=== PATIENT | female | born 1970 | race Caucasian/White ===

== ENCOUNTER → 2023-06-09 07:47 | Outpatient (REF) | payer BC, SELFPAY | LOC: WDC 07:47 | PROVIDERS: ATTENDING PHYSICIAN Obstetrics & Gynecology; FAMILY PHYSICIAN Physician Assistant Medical | DX: Z12.31 Encounter for screening mammogram for malignant neoplasm of breast (principal) | CPT/HCPCS: 77063; 77067 ==

== ENCOUNTER 2024-03-02 06:42 | Day surgery (SDC) | payer BC, SELFPAY ==
[2024-03-02 08:44] VITALS: BP 151/91
[2024-03-02 08:49] VITALS: BMI 41.6
[2024-03-02 08:55] VITALS: BMI 41.6
[2024-03-02 10:25] VITALS: BP 128/82
[2024-03-02 10:30] VITALS: BP 135/86
[2024-03-02 10:45] VITALS: BP 151/80
== END 2024-03-02 11:00 | disposition home or self-care (01) ==
LOC: GI 06:42
PROVIDERS: ATTENDING PHYSICIAN Student in an Organized Health Care Education/Training Program
DX: Z12.11 Encounter for screening for malignant neoplasm of colon (principal); K57.30 Diverticulosis of large intestine without perforation or abscess without bleeding; K64.0 First degree hemorrhoids; D12.3 Benign neoplasm of transverse colon; D12.4 Benign neoplasm of descending colon; K63.5 Polyp of colon; Z80.0 Family history of malignant neoplasm of digestive organs
CPT/HCPCS: 45385; 88305

== ENCOUNTER → 2024-05-27 07:20 | Outpatient (REF) | payer BC, SELFPAY ==
--- NOTE | 2024-05-27 08:50 | CARDSERVDEF ---
Echocardiogram with Definity completed after protocol screening completed. Allergies verified.
Patent IV site: 22 g agiocath inserted in LFA without incident, 1st attempt.
IV site flushed with 0.9% NaCl pre and post administration.
Diluted bolus method utilized to enhance visualization of ventricular nuñez.
Total volume given: 5 mL
Patient tolerated all procedures well without complications.
IV d/c'd and bandage applied after pressure held.
Pt discharged to home in good condition.
== END ==
LOC: RCS 07:20
PROVIDERS: ATTENDING PHYSICIAN Physician Assistant Medical
DX: R00.0 Tachycardia, unspecified (principal); R55 Syncope and collapse; R94.31 Abnormal electrocardiogram [ECG] [EKG]
CPT/HCPCS: 93017; 93225; 93226; 93350

== ENCOUNTER → 2024-06-09 07:50 | Outpatient (REF) | payer BC, SELFPAY | LOC: WDC 07:50 | PROVIDERS: ATTENDING PHYSICIAN Physician Assistant Medical | DX: Z12.31 Encounter for screening mammogram for malignant neoplasm of breast (principal) | CPT/HCPCS: 77063; 77067 ==

== ENCOUNTER → 2024-08-30 12:55 | Outpatient (REF) | payer BC, SELFPAY | LOC: RCS 12:55 | PROVIDERS: ATTENDING PHYSICIAN Internal Medicine Cardiovascular Disease; FAMILY PHYSICIAN Physician Assistant Medical | DX: R42 Dizziness and giddiness (principal); I10 Essential (primary) hypertension | CPT/HCPCS: 93306 ==

== ENCOUNTER 2024-11-25 10:11 | Emergency (ER) | payer BC, SELFPAY ==
[2024-11-25 10:12] VITALS: BP 171/96
--- NOTE | 2024-11-25 11:05 | ED.GENMED ---
History of Present Illness
General
Chief Complaint: Blood Pressure Problem
Source: patient
Exam Limitations: none
Time Seen by Provider: 11/25/24 10:44
History of Present Illness
History of Present Illness:
54yoF with a history of hypertension and rosacea presenting for evaluation of jitteriness. Patient started to experience kaleidoscope vision last night and was seeing 'silver flickers' in her vision. She has experienced this several times in the
past and this usually resolves after taking headache medication. She developed a gradual headache afterwards and took 2 [facility] migraine pills and went to bed. She woke up in the middle of the night feeling anxious with her heart racing. She had an
uneasiness in her stomach and felt like she could feel the 'air moving throughout her intestines.' She was having difficulty sleeping due to her symptoms. She again had kaleidoscope vision this morning which is unusual. She checked her blood
pressure at home which was 142/80. She called her PCP and was told to go to the ED for evaluation. Vision has improved currently but she states she does not feel right. No current headache but she feels like her 'head is fuzzy.' No chest pain or
shortness of breath. Her only current medications are amlodipine and doxycycline.
Patient has had similar symptoms at nighttime recently. Her PCP thought her symptoms may be related to anxiety or perimenopause.
Phy Exam
General Physical Exam
General Presentation: well appearing and no apparent distress
General Skin: warm and dry
General Habitus: normal
General Mental: alert
ENT Exam
ENT Exam: normocephalic
Eye Exam
Eye Exam: PERRL, EOMI, conjunctiva normal and visual huffman normal
Cardiovascular Exam
Cardiovascular Exam: regular rate/rhythm, no edema and no murmur
Pulmonary Exam
Pulmonary Exam: lungs clear, no respiratory distress, no rales, no crackles, no rhonchi and no wheezing
Neurological Exam
Neurological Exam: alert
[place] Coma Scale
Eye Opening: Spontaneous
Verbal Response: Oriented
Motor Response: Obeys Commands
GCS Total Score: 15
Skin Exam
Skin Exam: normal color and warm/dry
Psychiatric Exam
Psychiatric Exam: anxious
Course
Orders/Labs/Results
Orders:
Orders
11/25/24 11:03
Cardiac Monitoring- Treatment ONCE
Visual Acuity- Treatment ONCE
11/25/24 11:04
Electrocardiogram (*1) Urgent
Reason for Study: Palpitations
CT Head W/o Iv Contrast Urgent
Comment:
Reason For Exam: headache, visual changes
EKG- Treatment ONCE
11/25/24 11:18
Complete Blood Count/With Diff Urgent
Comprehensive Metabolic Panel Urgent
Magnesium Urgent
TSH Reflex To Free T4 Urgent
Troponin I Urgent
11/25/24 13:02
EKG- Treatment ONCE
11/25/24 14:15
Electrocardiogram (*1) Urgent
Reason for Study: Palpitations
11/25/24 15:13
Troponin I Urgent
11/25/24 11:18
11/25/24 11:18
Vital Signs
Initial and Last Documented VS:
Initial Vital Signs
Temp Pulse Resp BP Pulse Ox
98.6 F 79 18 171/96 100
11/25/24 10:12 11/25/24 10:12 11/25/24 10:12 11/25/24 10:12 11/25/24 10:12
Last Documented Vital Signs
Temp Pulse Resp BP Pulse Ox
98.1 F 60 16 126/82 96
11/25/24 16:14 11/25/24 16:14 11/25/24 16:14 11/25/24 16:14 11/25/24 16:14
MDM/Problems Addressed
Differential Diagnosis Includes:
54yoF here with jitteriness. Had kaleidoscope vision last night and this morning which has improved. Also had a headache which is better. States she does not feel right. No CP/SOB. BP 171/96 in triage. Remainder of vitals normal. She is well
appearing in no distress. Pupillary exam is normal and visual huffman/EOMs intact. Differential diagnosis includes but is not limited to: anxiety, complex migraine, thyroid dysfunction, less likely ACS, doubt CVA
Initial ED plan: Check cardiac labs, TSH, EKG, and CT head.
*Pulse Oximetry
SaO2: 100
Oxygen Mode of Delivery: Room air
Patient hypoxic: no (100%)
*EKG
Interpreted by ED Provider?: Yes
EKG Intrepretation Date: 11/25/24
Heart Rate: 62
Rate: normal
Rhythm: sinus
[place]: normal axis
Interval: normal interval
QRS Pattern: normal QRS
Ischemia: non-specific ST changes
*Critical Care Note
Total Time (30-74mins, 75-104mins- exclusive of procedures): Not Applicable
Update Note
Update Note:
Labs unremarkable including normal glucose, electrolytes, TSH. EKG shows NSR with nonspecific ST changes which appear new from prior EKG in 2002. Troponin WNL. CT head negative. On reassessment, she continues to deny chest pain. Her only current
symptom is fatigue and a mild headache. Repeat EKG/troponin performed at around 4 hours is unchanged. BP improved 126/82 without intervention. Patient stable for discharge. She was advised to f/u with her PCP and cardiology. She was also advised to
see her eye doctor for full eye exam. ED return precautions reviewed and she was discharged in stable condition.
ED Attending Note
-
Portions of this chart may have been created with voice recognition software.� Occasional wrong word or��sound alike� substitutions may have occurred due to the inherent limitations of voice recognition software.
Discharge Plan
Departure
Patient Disposition: Home (Routine Discharge)
Date of Disposition: 11/25/24
Time of Disposition: 16:03
Patient with high blood pressure during this ER visit?: No
Discharge Problem:
Acute headache, Feeling jittery, Nonspecific abnormal electrocardiogram (ECG)
Instructions: Headaches in adults
Prescriptions:
No Action
doxycycline hyclate 50 mg Capsule
25 mg PO DAILY
Rx Instructions:
for rosacea
ivermectin [Soolantra] 1 % Cream
1 applic TOPICAL HS
acetaminophen [acetaminophen] 325 mg tablet
650 mg PO Q4HPRN PRN (Reason: mild pain) Qty: 1 0RF
ibuprofen 200 mg tablet
400 - 600 mg PO Q6HPRN PRN (Reason: moderate pain) Qty: 1 0RF
Referrals:
Dolores Onofre MD [Family Provider, Gynecology]
Activity Restrictions/Additional Instructions:
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 You should also see your eye doctor for a dilated eye exam.
Return to the ER with any new or worsening symptoms.
Interventions
Interventions:
*Risk Screen - Suicide Last Done: 11/25/24 10:12
*Nursing Disposition Last Done: 11/25/24 16:14
ED- Cardiac Assessment Last Done: 11/25/24 12:17
ED- Neurological Assessment Last Done: 11/25/24 12:17
ED- Pulmonary Assessment Last Done: 11/25/24 12:17
Discharge Date and Time
Discharge Date/Time: 11/25/24 16:15
Print Language: SERBIAN
[2024-11-25 11:37] LABS: Hematocrit 38.7 % (37.0-47.0); Hemoglobin 13.2 g/dL (12.0-16.0); Mean Corp Hgb Conc. 34.1 g/dL (33.0-37.0); Mean Corpuscular Volume 85.6 fL (81.0-99.0); Nucleated Red Blood Cells % 0 %; Platelet Count 256 10^3/uL (130-400); Red Cell Dist. Width 12.6 % (11.5-14.5)
[2024-11-25 12:04] LABS: Troponin I < 0.012 ng/ml
[2024-11-25 12:09] LABS: ALT (SGPT) 19 U/L (0-35); AST (SGOT) 24 U/L (14-36); Albumin 4.7 g/dl (3.5-5.0); Alkaline Phosphatase 58 U/L (38-126); Blood Urea Nitrogen 11 mg/dl (7-17); Calcium 9.8 mg/dl (8.4-10.2); Carbon Dioxide 27 mmol/L (22-30); Chloride 105 mmol/L (98-107); Glucose 91 mg/dl (70-99); Magnesium 1.8 mg/dl (1.6-2.3); Potassium 4.2 mmol/L (3.5-5.1); Sodium 139 mmol/L (135-145); Total Protein 7.5 g/dl (6.3-8.2); eGFR > 60.00
[2024-11-25 12:21] VITALS: BP 142/77
[2024-11-25 15:21] VITALS: BP 129/72
[2024-11-25 15:47] LABS: Troponin I < 0.012 ng/ml
[2024-11-25 16:14] VITALS: BP 126/82
== END 2024-11-25 16:15 | disposition home or self-care (01) ==
LOC: EMR 10:11
PROVIDERS: Physician Assistant; EMERGENCY PHYSICIAN Emergency Medicine; FAMILY PHYSICIAN Obstetrics & Gynecology Gynecology
DX: R51.9 Headache, unspecified (principal); R94.31 Abnormal electrocardiogram [ECG] [EKG]; I10 Essential (primary) hypertension
CPT/HCPCS: 99284; 70450; 80053; 83735; 84443; 84484; 85025; 93005